=== PATIENT | female | born 1960 | race Caucasian/White ===

== ENCOUNTER 2017-09-08 07:55 | Day surgery (SDC) | payer BC ==
[~2017-09-08] VITALS: Ht 174 cm; Wt 72.6 kg
[~2017-09-08 07:55] MED LIST: CHANTIX1 MG PO; TYLENOL EXTRA500 MG PO
[2017-09-13] MEDS ORDERED: COMPAZINE10 MG PO (09:12)
[2017-09-13] MEDS ORDERED: ZOFRAN8 MG PO (09:13)
== END 2017-09-08 09:45 | disposition home or self-care (01) ==
LOC: CATH 07:55
PROC: B5181ZA Fluoroscopy of Superior Vena Cava using Low Osmolar Contrast, Guidance (ICD-10-PCS; principal; 2017-09-08)
PROC: 0JH60WZ Insertion of Totally Implantable Vascular Access Device into Chest Subcutaneous Tissue and Fascia, Open Approach (ICD-10-PCS; principal; 2017-09-08)
PROC: 02HV33Z Insertion of Infusion Device into Superior Vena Cava, Percutaneous Approach (ICD-10-PCS; principal; 2017-09-08)
DX: Z45.2 Encounter for adjustment and management of vascular access device (principal); I87.8 Other specified disorders of veins; C56.9 Malignant neoplasm of unspecified ovary; Z87.891 Personal history of nicotine dependence
CPT/HCPCS: C1752; C1894; J0690; J1644; J2250; J3010; S0020

== ENCOUNTER → 2018-02-09 | Outpatient (CLI) | payer OTHER ==
[~2018-02-09] MED LIST changes: +COMPAZINE10 MG PO; +ZOFRAN8 MG PO
== END | disposition home or self-care (01) ==
LOC: AMB 09:30
DX: Z45.2 Encounter for adjustment and management of vascular access device (principal); I87.8 Other specified disorders of veins; Z92.21 Personal history of antineoplastic chemotherapy